=== PATIENT | male | born 1970 | race Caucasian/White ===

== ENCOUNTER 2018-08-08 23:33 | Emergency (ER) | payer SELFPAY ==
[~2018-08-08] VITALS: Ht 172.7 cm; Wt 77.1 kg
[2018-08-08 23:36] VITALS: BP 138/68
[2018-08-09] MEDS ORDERED: ACETAMINOPHEN EXTRA STRENGTH 500 MG TAB PO ONE (00:55)
[2018-08-09 02:40] VITALS: BP 128/62
== END 2018-08-09 02:40 | disposition home or self-care (01) ==
LOC: MED 23:33
DX: Z00.00 Encounter for general adult medical examination without abnormal findings (principal); M79.1 Myalgia; Z59.0 Homelessness; E11.9 Type 2 diabetes mellitus without complications; I10 Essential (primary) hypertension
CPT/HCPCS: 99283

== ENCOUNTER 2018-08-24 16:15 | Emergency (ER) | payer SELFPAY ==
[~2018-08-24] VITALS: Ht 167.6 cm; Wt 113.4 kg
--- NOTE | 2018-08-24 16:16 | NUR ---
PT BIBA BLS TO BED 3
--- NOTE | 2018-08-24 16:18 | NUR ---
48Y/M BIBA C/O DEPRESSION. PT IS TRANSIENT, HAS NOT BEEN TAKING MEDICATION FOR OVER ONE YEAR. PT STATES HAD 'FEW BEERS TODAY'. PT STATES HX OF BIPOLAR. PT IS ON MONITOR ATT THIS TIME, AAOX4, VSS, ER MD AWARE AND NOTIFIED OF PT STATUS. WILL CONT TO MONITOR PT. HX AND RX: FOR DEPRESSION AND BIPOLAR
[2018-08-24 16:22] VITALS: BP 112/71
--- NOTE | 2018-08-24 17:30 | NUR ---
food tray ordered for patient
--- NOTE | 2018-08-24 17:45 | NUR ---
pt up in bed eating food tray at this time
--- NOTE | 2018-08-24 18:14 | NUR ---
Patient being evaluated by physician at bedside.
--- NOTE | 2018-08-24 18:14 | NUR ---
homeless/ community resources packet given to pt
--- NOTE | 2018-08-24 18:15 | NUR ---
bus pass given to pt
[2018-08-24 18:29] VITALS: BP 110/69
--- NOTE | 2018-08-24 18:29 | NUR ---
Patient discharged with v/s stable. Written and verbal after care instructions given and explained. Patient verbalized understanding. Ambulatory with steady gait. All questions addressed prior to discharge. Advised to follow up with PMD.
== END 2018-08-24 18:29 | disposition home or self-care (01) ==
LOC: MED 16:15
DX: F32.9 Major depressive disorder, single episode, unspecified (principal); E11.9 Type 2 diabetes mellitus without complications; I10 Essential (primary) hypertension; F20.9 Schizophrenia, unspecified; F17.200 Nicotine dependence, unspecified, uncomplicated
CPT/HCPCS: 99283

== ENCOUNTER 2018-08-25 02:40 | Emergency (ER) | payer SELFPAY ==
[~2018-08-25] VITALS: Ht 167.6 cm; Wt 81.2 kg
[2018-08-25 02:54] VITALS: BP 145/97
[2018-08-25] MEDS ORDERED: IBUPROFEN 600 MG TAB PO ONE (02:55)
[2018-08-25 03:22] VITALS: BP 140/84
== END 2018-08-25 03:22 | disposition home or self-care (01) ==
LOC: MED 02:40
DX: M79.10 Myalgia, unspecified site (principal); E11.9 Type 2 diabetes mellitus without complications; I10 Essential (primary) hypertension; F20.9 Schizophrenia, unspecified; Z59.0 Homelessness
CPT/HCPCS: 99282

== ENCOUNTER 2018-08-29 00:40 | Emergency (ER) | payer SELFPAY ==
[~2018-08-29] VITALS: Ht 177.8 cm; Wt 116.1 kg
[2018-08-29 00:45] VITALS: BP 116/65
[2018-08-29] MEDS: METOCLOPRAMIDE 10 MG TAB PO ONE (04:52)
[2018-08-29 05:05] VITALS: BP 126/68
== END 2018-08-29 05:05 | disposition home or self-care (01) ==
LOC: MED 00:40
DX: K21.9 Gastro-esophageal reflux disease without esophagitis (principal); E11.9 Type 2 diabetes mellitus without complications; I10 Essential (primary) hypertension; F20.9 Schizophrenia, unspecified
CPT/HCPCS: 99283; J8597

== ENCOUNTER 2018-09-29 22:53 | Emergency (ER) | payer SELFPAY ==
[~2018-09-29] VITALS: Ht 177.8 cm; Wt 116.1 kg
[2018-09-29 22:59] VITALS: BP 145/87
[2018-09-29 23:16] VITALS: BP 145/87
== END 2018-09-29 23:16 | disposition home or self-care (01) ==
LOC: MED 22:53
DX: G89.29 Other chronic pain (principal); M79.604 Pain in right leg; M79.605 Pain in left leg; F20.9 Schizophrenia, unspecified; E11.9 Type 2 diabetes mellitus without complications; I10 Essential (primary) hypertension; Z88.0 Allergy status to penicillin
CPT/HCPCS: 99282

== ENCOUNTER 2018-10-01 03:20 | Emergency (ER) | payer SELFPAY ==
[~2018-10-01] VITALS: Ht 177.8 cm; Wt 116.6 kg
[2018-10-01 03:32] VITALS: BP 126/82
== END 2018-10-01 04:50 | disposition left against medical advice (07) ==
LOC: MED 03:20
DX: M79.10 Myalgia, unspecified site (principal); Z53.21 Procedure and treatment not carried out due to patient leaving prior to being seen by health care provider

== ENCOUNTER 2018-10-04 09:53 | Emergency (ER) | payer SELFPAY ==
[~2018-10-04] VITALS: Ht 177.8 cm; Wt 116.1 kg
--- NOTE | 2018-10-04 10:10 | NUR ---
PT AMBULATES TO BED 3
[2018-10-04 10:11] VITALS: BP 136/71
--- NOTE | 2018-10-04 10:15 | NUR ---
PATIENT PRESENTS TO ED WITH C/O MALAISE . PT STATES HE HAS BEEN NOT FEELING WELL FOR A WEEK BUT IS UNABLE TO DESCRIBE SYMPTOMS . DENIES N/V/D; SKIN IS PINK/WARM/DRY; AAOX4 WITH EVEN AND STEADY GAIT; LUNGS CLEAR BL; HR EVEN AND REGULAR; PT DENIES ANY FEVER, CP, SOB, OR COUGH AT THIS TIME; PATIENT STATES PAIN OF 0/10 AT THIS TIME; VSS; PATIENT POSITIONED FOR COMFORT; HOB ELEVATED; BEDRAILS UP X2; BED DOWN. ER MD MADE AWARE OF PT STATUS.
[2018-10-04] MEDS ORDERED: cefTRIAXone 1,000 MG in LIDOCAINE MPF 1% - 5 mL VIAL 2.1 ML IM ONE (10:40)
--- NOTE | 2018-10-04 13:28 | NUR ---
Patient discharged with v/s stable. Written and verbal after care instructions given and explained. Patient alert, oriented and verbalized understanding of instructions. Ambulatory with steady gait. All questions addressed prior to discharge. ID band removed. Patient advised to follow up with PMD. Rx of augmentin given. Patient educated on indication of medication including possible reaction and side effects. Opportunity to ask questions provided and answered. michael harmon handed to pt
[2018-10-04 13:29] VITALS: BP 111/58
== END 2018-10-04 13:28 | disposition home or self-care (01) ==
LOC: MED 09:53
DX: J06.9 Acute upper respiratory infection, unspecified (principal); E11.9 Type 2 diabetes mellitus without complications; I10 Essential (primary) hypertension; F31.9 Bipolar disorder, unspecified; F20.9 Schizophrenia, unspecified; Z59.0 Homelessness; Z88.0 Allergy status to penicillin
CPT/HCPCS: 96372; 99283; J0696; J2001

== ENCOUNTER 2018-10-05 11:07 | Emergency (ER) | payer SELFPAY ==
--- NOTE | 2018-10-05 11:17 | NUR ---
pt requested bus token and food--provided pt does not have a new medical problems which requires to be addressed at this time as per pt. pt admits has resources for food and is aware where to go for longterm. enriqueta galvan rn notified
== END 2018-10-05 11:17 | disposition left against medical advice (07) ==
LOC: MED 11:07
DX: Z53.21 Procedure and treatment not carried out due to patient leaving prior to being seen by health care provider (principal)

== ENCOUNTER 2018-10-17 00:15 | Emergency (ER) | payer SELFPAY ==
[~2018-10-17] VITALS: Ht 177.8 cm; Wt 91.7 kg
[2018-10-17 00:15] VITALS: BP 131/75
--- NOTE | 2018-10-17 00:17 | NUR ---
PT BIB SELF C/O BILAT FOOT PAIN OFF AND ON X YEARS. PT DENIES N/V/D; SKIN IS INTACT, PINK/WARM/DRY; AAOX4, PERRL, WITH EVEN AND STEADY GAIT; LUNGS CLEAR BL, BREATHING UNLABORED; HR EVEN AND REGULAR, BL PERIPHERAL PULSES PRESENT; BS ACTIVE X4, NO TENDERNESS TO PALPATION. PT DENIES ANY FEVER, CP, SOB, OR COUGH AT THIS TIME; PT STATES 4/10 PAIN AT THIS TIME; VSS; PATIENT POSITIONED FOR COMFORT; HOB ELEVATED; BEDRAILS UP X2; BED DOWN.
--- NOTE | 2018-10-17 00:21 | NUR ---
Dr. Osorio evaluating patient
--- NOTE | 2018-10-17 00:31 | NUR ---
HOMELESS PATIENT WAIVER FORM GIVEN AND SIGNATURE BY PT DONE AAOX4
[2018-10-17 00:33] VITALS: BP 127/75
== END 2018-10-17 00:30 | disposition home or self-care (01) ==
LOC: MED 00:15
DX: G89.29 Other chronic pain (principal); M79.662 Pain in left lower leg; M79.661 Pain in right lower leg; E11.9 Type 2 diabetes mellitus without complications; I10 Essential (primary) hypertension; Z88.0 Allergy status to penicillin
CPT/HCPCS: 99283

== ENCOUNTER 2018-10-17 09:02 | Emergency (ER) | payer SELFPAY ==
[~2018-10-17] VITALS: Ht 177.8 cm; Wt 115.7 kg
[2018-10-17 09:03] VITALS: BP 129/69
--- NOTE | 2018-10-17 09:03 | NUR ---
TO BED # 11 AMBULATORY, REPORT GIVEN TO NERY GRAVES
--- NOTE | 2018-10-17 09:10 | NUR ---
PT C/O OF BILATERAL LEG PAIN ONGOING FOR 1 YEAR. PT APPEARS TO BE A TRANSIENT AND DISHEVELED. PT PRESENTS WITH STRONG FOUL ODOR. STATES WAS SEEN EARLIER AND IS STILL EXPERIENCING PAIN. PT WAS ASKED TO PROVIDE URINE SAMPLE. PATIENT STATES PAIN OF 7/10 AT THIS TIME; VSS; PATIENT POSITIONED FOR COMFORT; HOB ELEVATED; BEDRAILS UP X1; BED DOWN. ER MD MADE AWARE OF PT STATUS.
[2018-10-17 10:14] VITALS: BP 129/69
== END 2018-10-17 10:15 | disposition home or self-care (01) ==
LOC: MED 09:02
DX: G89.29 Other chronic pain (principal); F43.9 Reaction to severe stress, unspecified; E11.9 Type 2 diabetes mellitus without complications; I10 Essential (primary) hypertension; F17.200 Nicotine dependence, unspecified, uncomplicated; Z88.0 Allergy status to penicillin; Z59.0 Homelessness
CPT/HCPCS: 99283

== ENCOUNTER 2018-10-17 22:08 | Emergency (ER) | payer SELFPAY ==
[~2018-10-17] VITALS: Ht 180.3 cm; Wt 116.1 kg
--- NOTE | 2018-10-17 22:17 | NUR ---
PT BIB SELF C/O CHRONIC LEG PAIN. Pupils equal and reactive to light bilaterally. No facial droop noted. No smile deficit noted. Speech normal for patient. Patient is alert and oriented to person, place, time and event. Bilateral hand machinery dismantler equal. Bilateral foot push equal.
[2018-10-17 22:19] VITALS: BP 139/87
[2018-10-17] MEDS ORDERED: IBUPROFEN 800 MG TAB PO ONE (22:25)
[2018-10-17 22:33] VITALS: BP 134/77
--- NOTE | 2018-10-17 22:34 | NUR ---
Patient discharged with v/s stable. Written and verbal after care instructions given and explained. Patient alert, oriented and verbalized understanding of instructions. Ambulatory with steady gait. All questions addressed prior to discharge. ID band removed. Patient advised to follow up with PMD. Rx of IBU given. Patient educated on indication of medication including possible reaction and side effects. Opportunity to ask questions provided and answered.
--- NOTE | 2018-10-17 22:35 | NUR ---
HOMELESS PATIENT WAIVER FORM SIGNATURE BY PT GASPER4
== END 2018-10-17 22:34 | disposition home or self-care (01) ==
LOC: MED 22:08
DX: G89.29 Other chronic pain (principal); M79.604 Pain in right leg; M79.605 Pain in left leg; E11.9 Type 2 diabetes mellitus without complications; I10 Essential (primary) hypertension; Z59.0 Homelessness; Z88.0 Allergy status to penicillin
CPT/HCPCS: 99282

== ENCOUNTER 2018-10-21 12:08 | Emergency (ER) | payer MEDICAID ==
[~2018-10-21] VITALS: Ht 177.8 cm; Wt 116.1 kg
--- NOTE | 2018-10-21 12:13 | NUR ---
Patient ambulated to bed 11. RN evaluating patient at bedside.
[2018-10-21 12:15] VITALS: BP 136/72
--- NOTE | 2018-10-21 12:20 | NUR ---
BIB SELF. PATIENT PRESENTS TO ED WITH TIRED PAINFUL LEGS. PT STATES HE HAS CHRONIC LEG PAIN. DENIES N/V/D; SKIN IS PINK/WARM/DRY; AAOX4 WITH EVEN AND STEADY GAIT; LUNGS CLEAR BL; HR EVEN AND REGULAR; PT DENIES ANY FEVER, CP, SOB, OR COUGH AT THIS TIME; PATIENT STATES PAIN OF 0/10 AT THIS TIME; VSS; PATIENT POSITIONED FOR COMFORT; HOB ELEVATED; BEDRAILS UP X2; BED DOWN. ER MD MADE AWARE OF PT STATUS.
--- NOTE | 2018-10-21 13:03 | NUR ---
Dr. Mansfield evaluating patient at bedside.
--- NOTE | 2018-10-21 13:39 | NUR ---
LOSS CONTROL MANAGER YOSEPH AT BEDSIDE SPEAKING WITH PATIENT.
--- NOTE | 2018-10-21 15:20 | NUR ---
PATIENT GIVEN A SANDWICH AND SOMETHING TO DRINK. NO OTHER STATED NEEDS AT THIS TIME.
--- NOTE | 2018-10-21 15:51 | NUR ---
Professor In Family Studies Note: I met with patient at bedside to discuss discuss plan. He stated he is currently homeless. He told me he does not have any family members and does not recall his social security number. He reported he has gone to [place] in the past, but is unable to recall city, phone number, or address of [place]. He was unable to tell me if he has an income or provide additional information. I faxed inquiries to the following snfs and contacted them: Per Adriana from [facility] , no beds at this time. Per Devika from [facility] , they aren't accepting [facility] patients at this time. Pending response from Dylan at [facility] Per Pauly at [facility] , they checked [facility] eligibility benefits and patient does not have snf benefits, unable to accept. Per Ida from [facility] ,they aren't accepting [facility] patients at this time. Addendum: 10/21/18 at 1646 by Pam Stearns SS Per Urszula from [facility] , unable to accept patient due to substance abuse.
--- NOTE | 2018-10-21 16:48 | NUR ---
Windrower Operator Note: I faxed inquiry to [facility]. I requested for Rhiannon from [facility] to please contact patient's nurse Amaya at Emergency Room and inform her if they can accept patient. Addendum: 10/21/18 at 1656 by Pam Stearns SS I informed patient's nurse Rhiannon Conde from [facility] will be contacting her and letting her know if they can or cannot accept patient.
--- NOTE | 2018-10-21 16:54 | NUR ---
SW CALLED AND SAID THAT THERE WAS ONE LAST SNF THAT MAY BE ABLE TO TAKE THE PATIENT, STATED WE SHOULD BE HEARING FROM THEM.
[2018-10-21 17:07] VITALS: BP 118/73
--- NOTE | 2018-10-21 17:51 | NUR ---
PATIENT SLEEPING SOUNDLY.
--- NOTE | 2018-10-21 18:12 | NUR ---
patient refuesed to stay, awaiting placement. Left ER with steady gait, no deficits noted.
== END 2018-10-21 18:12 | disposition left against medical advice (07) ==
LOC: MED 12:08
DX: F20.9 Schizophrenia, unspecified (principal); F17.200 Nicotine dependence, unspecified, uncomplicated; M79.604 Pain in right leg; M79.605 Pain in left leg; R50.9 Fever, unspecified; E11.9 Type 2 diabetes mellitus without complications; I10 Essential (primary) hypertension; Z88.0 Allergy status to penicillin
CPT/HCPCS: 99283

== ENCOUNTER 2018-10-22 11:09 | Emergency (ER) | payer MEDICAID ==
[~2018-10-22] VITALS: Ht 180.3 cm; Wt 89.0 kg
[2018-10-22 11:37] VITALS: BP 104/51
--- NOTE | 2018-10-22 11:45 | NUR ---
PT AMBULATES TO THE LOBBY WITHOUT DIFFICULTY, LUNCH ORDERED
--- NOTE | 2018-10-22 12:15 | NUR ---
PATIENT AMBULATED TO BED 3 AT THIS TIME.
--- NOTE | 2018-10-22 12:18 | NUR ---
ABIB SELF. BILATERAL LEG PAIN. WAS SEEN HERE YESTERDAY. DENIES N/V/D; SKIN IS PINK/WARM/DRY; AAOX4 WITH EVEN AND STEADY GAIT; LUNGS CLEAR BL; HR EVEN AND REGULAR; PT DENIES ANY FEVER, CP, SOB, OR COUGH AT THIS TIME; PATIENT STATES PAIN OF 10/10 AT THIS TIME; VSS; PATIENT POSITIONED FOR COMFORT; HOB ELEVATED; BEDRAILS UP X2; BED DOWN. ER MD MADE AWARE OF PT STATUS.
[2018-10-22] MEDS ORDERED: ACETAMINOPHEN 325 MG TAB PO ONE (12:45)
[2018-10-22 13:20] VITALS: BP 110/62
--- NOTE | 2018-10-22 13:21 | NUR ---
PT WILL BE PROVIDED BUS PASS.
== END 2018-10-22 13:21 | disposition home or self-care (01) ==
LOC: MED 11:09
DX: M79.604 Pain in right leg (principal); M79.605 Pain in left leg; E11.9 Type 2 diabetes mellitus without complications; I10 Essential (primary) hypertension; Z00.01 Encounter for general adult medical examination with abnormal findings; Z88.0 Allergy status to penicillin
CPT/HCPCS: 99282

== ENCOUNTER 2018-10-22 23:03 | Emergency (ER) | payer MEDICAID ==
[~2018-10-22] VITALS: Ht 175.3 cm; Wt 77.1 kg
[2018-10-22 23:08] VITALS: BP 119/52
[2018-10-22 23:25] VITALS: BP 119/52
[2018-10-22] MEDS: IBUPROFEN 600 MG TAB PO ONE (23:38)
== END 2018-10-22 23:25 | disposition home or self-care (01) ==
LOC: MED 23:03
DX: G89.29 Other chronic pain (principal); M79.604 Pain in right leg; M79.605 Pain in left leg; E11.9 Type 2 diabetes mellitus without complications; I10 Essential (primary) hypertension; Z59.0 Homelessness; Z88.0 Allergy status to penicillin
CPT/HCPCS: 99283

== ENCOUNTER 2018-10-25 03:00 | Emergency (ER) | payer MEDICAID ==
[~2018-10-25] VITALS: Ht 165.1 cm; Wt 99.8 kg
[2018-10-25 03:10] VITALS: BP 126/66
[2018-10-25 03:16] VITALS: BP 126/66
== END 2018-10-25 03:16 | disposition home or self-care (01) ==
LOC: MED 03:00
DX: M79.606 Pain in leg, unspecified (principal); E11.9 Type 2 diabetes mellitus without complications; I10 Essential (primary) hypertension; Z02.89 Encounter for other administrative examinations; Z88.0 Allergy status to penicillin
CPT/HCPCS: 99281

== ENCOUNTER 2018-11-06 00:57 | Emergency (ER) | payer MEDICAID ==
[~2018-11-06] VITALS: Ht 175.3 cm; Wt 98.5 kg
[2018-11-06 01:01] VITALS: BP 157/56
[2018-11-06] MEDS ORDERED: IBUPROFEN 400 MG TAB PO ONE (06:15)
[2018-11-06 06:23] VITALS: BP 157/56
== END 2018-11-06 06:23 | disposition home or self-care (01) ==
LOC: MED 00:57
DX: S96.912A Strain of unspecified muscle and tendon at ankle and foot level, left foot, initial encounter (principal); S96.911A Strain of unspecified muscle and tendon at ankle and foot level, right foot, initial encounter; E11.9 Type 2 diabetes mellitus without complications; I10 Essential (primary) hypertension; Z88.0 Allergy status to penicillin; Z59.0 Homelessness; X58.XXXA Exposure to other specified factors, initial encounter; Y93.89 Activity, other specified; Y92.89 Other specified places as the place of occurrence of the external cause; Y99.8 Other external cause status
CPT/HCPCS: 99282